=== PATIENT | female | born 1960 | race Caucasian/White ===

== ENCOUNTER 2018-05-08 11:18 | Emergency (ER) | payer BC ==
[~2018-05-08] VITALS: Ht 157.5 cm; Wt 77.1 kg
[~2018-05-08 11:18] MED LIST: LIPITOR40 MG PO; NITROGLYCERIN0.4 MG SL; TOPROL XL25 MG PO
[2018-05-08] MEDS ORDERED: METOPROLOL SUCC25 MG PO (11:32)
--- NOTE | 2018-05-09 16:50 | EKG ---
[facility] [address] [facility] [place] [address] Signed Normal sinus rhythm Normal ECG When compared with ECG of 17-AUG-2016 14:41, No significant change was found Confirmed by LI DUBOIS DO ([id number]) on 05/09/2018 4:50:42 PM Electronically Signed By: LI DUBOIS DO 05/09/18 1650 PATIENT NAME: SHERWIN OMALLEY AARON Electrocardiogram DATE OF : 62 PHYSICIAN: LI DUBOIS DO REPORT #: [id number] REPORT IS CONFIDENTIAL AND NOT TO BE RELEASED WITHOUT AUTHORIZATION
== END 2018-05-08 13:15 | disposition home or self-care (01) ==
LOC: ED 11:18
DX: R07.89 Other chest pain (principal); G43.909 Migraine, unspecified, not intractable, without status migrainosus; Z88.0 Allergy status to penicillin; Z88.2 Allergy status to sulfonamides; Z79.899 Other long term (current) drug therapy
CPT/HCPCS: 71045; 80053; 84484; 85025; 85610; 93005; 93010; 99285-25

== ENCOUNTER 2019-04-30 16:27 | Emergency (ER) | payer OTHER, BC ==
[~2019-04-30] VITALS: Ht 157.5 cm; Wt 79.4 kg
[~2019-04-30 16:27] MED LIST changes: +METOPROLOL SUCC25 MG PO
[2019-04-30] MEDS ORDERED: CLINDAMYCIN HC300 MG PO (18:12)
[2019-04-30] MEDS ORDERED: PERCOCET 5-3251 EACH PO (18:12)
== END 2019-04-30 18:33 | disposition home or self-care (01) ==
LOC: ED 16:27
DX: S61.011A Laceration without foreign body of right thumb without damage to nail, initial encounter (principal); X58.XXXA Exposure to other specified factors, initial encounter; Y99.0 Civilian activity done for income or pay; G43.909 Migraine, unspecified, not intractable, without status migrainosus; Z88.0 Allergy status to penicillin; Z88.2 Allergy status to sulfonamides; Z79.899 Other long term (current) drug therapy
CPT/HCPCS: 73140; 90471; 90714; 99283-25

== ENCOUNTER 2020-10-06 08:36 | Emergency (ER) | payer BC ==
[~2020-10-06] VITALS: Ht 157.5 cm; Wt 79.4 kg
[~2020-10-06 08:36] MED LIST changes: +CLINDAMYCIN HC300 MG PO; +PERCOCET 5-3251 EACH PO
--- NOTE | 2020-10-06 11:26 | EKG ---
[facility] [address] [facility] [place], [place] [address] Signed Normal sinus rhythm Cannot rule out Inferior infarct , age undetermined Abnormal ECG When compared with ECG of 08-MAY-2018 11:24, QT has shortened Confirmed by LI DUOBIS DO ([id number]) on 10/06/2020 11:25:52 AM Electronically Signed By: LI DUBOIS DO 10/06/20 1126 PATIENT NAME: SHERWIN OMALLEY Electrocardiogram DATE OF : 62 PHYSICIAN: LI DUBOIS DO REPORT #: [id number] REPORT IS CONFIDENTIAL AND NOT TO BE RELEASED WITHOUT AUTHORIZATION
== END 2020-10-06 10:55 | disposition home or self-care (01) ==
LOC: ED 08:36
DX: R07.89 Other chest pain (principal); G43.909 Migraine, unspecified, not intractable, without status migrainosus; Z88.0 Allergy status to penicillin; Z88.2 Allergy status to sulfonamides; Z79.899 Other long term (current) drug therapy
CPT/HCPCS: 71045; 80053; 83735; 84484; 85025; 93005; 93010; 99285-25

== ENCOUNTER 2020-11-07 12:31 | Emergency (ER) | payer BC ==
[~2020-11-07] VITALS: Ht 157.5 cm; Wt 79.4 kg
[2020-11-07] MEDS ORDERED: ATIVAN1 MG PO (15:46)
[2020-11-07] MEDS ORDERED: PREDNISONE20 MG PO (15:46)
== END 2020-11-07 15:59 | disposition home or self-care (01) ==
LOC: ED 12:31
DX: M54.42 Lumbago with sciatica, left side (principal); G43.909 Migraine, unspecified, not intractable, without status migrainosus; Z88.0 Allergy status to penicillin; Z88.2 Allergy status to sulfonamides; Z79.899 Other long term (current) drug therapy
CPT/HCPCS: 96374; 96375; 99283-25; J1100; J1885; J2060